=== PATIENT | female | born 1970 | race Caucasian/White ===

== ENCOUNTER → 2024-07-27 | Outpatient (CLI) | payer BC, SELFPAY ==
[2024-07-27 08:31] LABS: Basophils # (Auto) 0.1 Thou/mm3 (0.0-0.2); Basophils % (Auto) 1 % (0-2.5); Eosinophils # (Auto) 0.1 Thou/mm3 (0.0-0.5); Eosinophils % (Auto) 1 % (0-10); Hematocrit 41.8 % (36.0-46.0); Hemoglobin 13.8 g/dL (12.0-16.0); Immature Granulocytes % (Auto) 0 % (0-0); Immature Granulocytes Auto 0.02 Thou/mm3 (0.00-0.00); Lymphocytes # (Auto) 2.8 Thou/mm3 (1.0-4.8); Lymphocytes % (Auto) 33 % (10-50); Mean Corpuscular Hemoglobin 29.1 pg (25.0-35.0); Mean Corpuscular Volume 88 fL (80-100); Monocytes # (Auto) 0.8 Thou/mm3 (0.0-0.8); Monocytes % (Auto) 10 % (0-12); Neutrophils # (Auto) 4.6 Thou/mm3 (1.8-7.7); Neutrophils % (Auto) 55 % (37-80); Nucleated Red Blood Cell % 0 /100 WBC (0); Platelet Count 313 Thou/mm3 (140-440); RDW Standard Deviation 42.3 fL (36.4-46.3); Red Blood Count 4.74 Miln/mm3 (4.00-5.20); White Blood Count 8.3 Thou/mm3 (3.6-11.0)
[2024-07-27 08:40] LABS: Glucose Estimated Average 120 mg/dL (80-131); Hemoglobin A1C 5.8 % Hgb (4.8-6.0)
[2024-07-27 08:53] LABS: Alanine Aminotransferase 13 U/L (10-49); Albumin, Serum 4.4 gm/dL (3.5-5.0); Alkaline Phosphatase 67 U/L (46-116); Anion Gap 9 (7-16); Aspartate Amino Transferase 15 U/L (0-34); BUN/Creatinine Ratio 13 Ratio (12-20); Bilirubin,Total 0.8 mg/dL (0.3-1.2); Blood Urea Nitrogen 12 mg/dL (9-23); Calcium 9.8 mg/dL (8.3-10.6); Calcium (Corrected) 9.8 mg/dL (8.5-10.1); Carbon Dioxide 31.2 mMol/L (20.0-31.0); Cardiac Risk Estimate 2.9 RATIO (3.7-5.6); Chloride 102 mMol/L (98-107); Cholesterol 188 mg/dL (132-200); Creatinine (Component) 0.9 mg/dL (0.6-1.3); Globulin 2.2 gm/dL (2.3-3.5); Glucose 109 mg/dL (74-106); HDL Cholesterol 64 mg/dL (40-60); LDL Cholesterol,Calculated 76 mg/dL (0-130); Osmolality,Calculated 283 (275-295); Potassium 3.9 mMol/L (3.4-5.1); Sodium 142 mMol/L (136-145); Thyroid Stimulating Hormone 1.81 uIU/mL (0.55-4.78); Total Protein 6.6 gm/dL (5.7-8.2); Triglycerides 241 mg/dL (30-150); eGFR > 60 See Note
== END | disposition home or self-care (01) ==
LOC: COPL 07:25
PROVIDERS: PCP Internal Medicine; Referring Provider Internal Medicine; Visit Provider Internal Medicine
DX: I10 Essential (primary) hypertension (principal); E78.2 Mixed hyperlipidemia
CPT/HCPCS: 36415; 80053; 80061; 83036; 84443; 85025

== ENCOUNTER 2024-08-19 22:18 | Emergency (ER) | payer BC, SELFPAY ==
[2024-08-19 22:20] VITALS: BMI 32.1
[2024-08-19 22:34] VITALS: BP 123/85; PULSE 117; RESP 18; TEMP 36.6; O2SAT 98
--- NOTE | 2024-08-19 22:58 | EDNOTE_ITS ---
ED Animal Bite RME/HPI General Chief Complaint: Animal Bite Stated Complaint: DOG BITE TO RIGHT ARM Time Seen by Provider: 08/19/24 22:43 Arrival date/time: 08/19/24 22:18 RME / HPI RME / HPI narrative: Dr. Johnson?s Main ED Evaluation: 54yo female with no significant past medical history presents to the ED for an animal bite. Patient states her dog was attacking her outside, so she attempted to stop the dog from hurting him and sustained dog bites to her right arm. She currently rates her pain a 7-8 out of 10 in severity. Patient denies any other injuries. Patient does not remember when her last tetanus shot is. Patient states the dog did get his shots when he was a puppy. Related Data Previous Rx's ?Medication ?Instructions ?Recorded Phenazopyridine * (PYRIDIUM *) 200 mg PO TIDPC #12 tab s 10/30/16 amoxicillin 875 mg-potassium 1 tab PO BID 2 weeks #28 tabs 08/20/24 clavulanate 125 mg tablet hydrocodone 5 mg-acetaminophen 325 1 tab PO Q6H PRN pa in #14 tabs 08/20/24 mg tablet ibuprofen 800 mg tablet 800 mg PO Q8H PRN pain #30 t abs 08/20/24 Allergies Allergy/AdvReac Type Severity Reaction Status Date / Time ERYTHROMYCIN Allergy Unknown Uncoded 08/19/24 22:19 NKA Allergy Unknown Uncoded 08/19/24 22:19 ERYTHROMYCIN (Generic Allergy Y Uncoded 08/19/24 22:19 Allergy) Review of Systems Review of Systems Systems Reviewed: All systems reviewed, normal except as documented Past Medical History Past Medical History CARDIAC: Negative Congestive Heart Failure RESPIRATORY: Negative Chronic Obstructive Pulmonary Disease (COPD) GENITOURINARY: Negative Renal Disease ENDOCRINE: Negative Diabetes Mellitus Type 1 or Diabetes Mellitus Type 2 Social History SMOKING STATUS: Never smoker ED Exam Narrative Physical exam: GENERAL APPEARANCE: alert and oriented x 4, well-developed, well-nourished, no acute distress VITALS: All vitals were reviewed and the pulse ox is 98% on room air, which is normal according to my interpretation. HEENT: Normocephalic, atraumatic; pupils equal, round, reactive to light; EOMI; mucous membranes pink, moist; oropharynx clear NECK: Supple LUNGS: CTABL; no wheezes, no rales, no rhonchi HEART: Regular rate, regular rhythm; normal S1, S2; no murmurs ABDOMEN: non distended; normal BS; soft, no tenderness, no guarding, no rebound; no masses, no organomegaly, no hernia BACK: no CVA tenderness EXTREMITIES: right medial forearm has a 15 cm contused tissue area with ecchymosis and superficial abrasions with 2 large lacerations (one being 6x5cm and the other being 5x4cm in between the superficial abrasions), no active bleeding; normal member of technical staff, normal sensations, normal motor function; no edema NEUROLOGIC: awake; alert and oriented x4; cranial nerves II-XII grossly intact; no focal sensory or motor deficits PSYCHIATRIC: appropriate mood and affect SKIN: warm, dry, normal color; no rashes Course Quality Measures none Orders Category Date Time Status Irrigate Wound NOW Care 08/19/24 23:00 Completed Set Up Suture Tray NOW Care 08/19/24 23:00 Completed XR forearm RT 2V Stat Exams 08/19/24 23:01 Completed Acetaminophen Tab [Tylenol Tab] Med 08/19/24 22:58 Discontinued 650 mg PO X1 ONE Amoxicillin/Pot Clav 875 [Augmentin 875] Med 08/20/24 00:06 Discontinued 1 tab PO X1 ONE HYDROcodone/APAP 10/325 [[place] 10/325] Med 08/19/24 22:58 Discontinued 1 tab PO X1 ONE Ibuprofen Tab [Motrin Tab] Med 08/19/24 22:58 Discontinued 600 mg PO X1 ONE Lidocaine 1% 20 ml [Xylocaine 1% 20 ML] Med 08/20/24 00:12 Discontinued 20 ml INFL X1 ONE Sodium Cl Irrig Soln [NS Irrig] Med 08/19/24 23:00 Discontinued 500 ml IRRIG X1 ONE TET,DIP/PERT AC (Adult)-Tdap [Boostrix Adult (Tdap) Med 08/19/24 22:58 Discontinued Vacc] 0.5 ml IMI .ONCE ONE Vital Signs Vital signs: Vital Signs Temperature 98 F 08/19/24 22:34 Pulse Rate 117 H 08/19/24 22:34 Respiratory Rate 18 08/19/24 22:34 Blood Pressure 123/85 H 08/19/24 22:34 Pulse Oximetry (%) 98 08/19/24 22:34 Oxygen Delivery Method Room Air 08/19/24 22:34 Animal Bite MDM Narrative MDM Narrative:: Scribe Attestation: 08/19/24 - Evita Pitts am scribing for and in the presence of Dr. Johnson. See Dr. Bowles's (resident physician) addendum for procedure note. Patient data External records reviewed:: [facility] previous records (Per chart review, patient has no previous ED visits or admissions to this facility.) Clinical information provided by:: patient Social determinants that could affect healthcare access:: none Patient has the following chronic illnesses:: none How is presenting disease/condition affected by chronic disease/condition?: no chronic disease Evaluation data The following diagnostics were reviewed and interpreted by me:: radiology exam(s) Lab and/or radiology exams considered but not ordered:: none Interpretation Summary: [facility] Report Signed Patient: RUFUS RENE. Record#: [id number] Birthdate: 1970 Age/Sex: 54 / F Location: [facility] [place] Attending Dr: Ordering Physician: Jakob Johnson MD Date of Service: 08/19/24 Procedure(s): XR forearm RT 2V Accession Number(s): [id number] cc: Brijesh Shaffer MD; NO PRIMARY/FAMILY,PHYSICIAN; Jakob Johnson MD~ Examination: Forearm, right, 2 views. Technique: Forearm, AP, lateral 2 views, right Date and time of exam: August 19, 2024, 11:12 PM INDICATIONS: Dog bite today FINDINGS: Soft tissue defects medial forearm No fracture. No opaque foreign body IMPRESSION: No opaque foreign body Dictated By: Brijesh Shaffer MD Signed By: <Electronically signed by Brijesh Shaffer MD in OV> 08/19/24 1249 Medications / Prescriptions Medications or Prescriptions considered but not ordered:: none Medication administrations:: Medication Administration History Discontinued Medications Acetaminophen (Acetaminophen 325 Mg Tablet) 650 mg PO X1 ONE Stop: 08/19/24 22:59 Last Admin: 08/19/24 23:56 Dose: 650 mg Documented By: ANA Hydrocodone Bitart/Acetaminophen (Hydrocodone/Apap 10/325 Tab) 1 tab PO X1 ONE Stop: 08/19/24 22:59 Last Admin: 08/19/24 23:58 Dose: 1 tab Documented By: ANA Amoxicillin/Clavulanate Potassium (Amoxicillin/Pot Clav 875 Tablet) 1 tab PO X1 ONE Stop: 08/20/24 00:07 Last Admin: 08/20/24 00:18 Dose: 1 tab Documented By: ANA Diphtheria/Tetanus/Acell Pertussis (Diphth,Pertuss(Acell),Tet Vac 0.5 Ml Syr- Adult) 0.5 ml IMi .ONCE ONE Stop: 08/19/24 22:59 Last Admin: 08/19/24 23:57 Dose: 0.5 ml Documented By: ANA Ibuprofen (Ibuprofen Tab 600 Mg Tablet) 600 mg PO X1 ONE Stop: 08/19/24 22:59 Last Admin: 08/19/24 23:57 Dose: 600 mg Documented By: ANA Lidocaine HCl (Lidocaine Hcl 1% 20 Ml Vial) 20 ml INFL X1 ONE Stop: 08/20/24 00:13 Last Admin: 08/20/24 00:19 Dose: 20 ml Documented By: ANA Sodium Chloride (Sodium Cl Irrig Soln 500 Ml Btl) 500 ml IRRIG X1 ONE Stop: 08/19/24 23:01 Last Admin: 08/20/24 00:25 Dose: 500 ml Documented By: ANA see above Consultations Consultation(s) initiated? (list below): No Diagnosis Differential diagnosis animal bite: dog bite and other (fracture, puncture wound s, cellulitis) Most likely diagnosis given after review of the tests above:: see clinical impression below Admission Indicated Admission indicated?: not indicated Explain why admission is indicated or not indicated:: Patient has no emergent abnormalities in their studies and can be managed on an outpatient basis. Admission Request Was there a request for admission?: No Disposition Plan Disposition Plan: Discharge Discharge Attestation Discharge Attestation: The patient and all family members were given an opportunity to ask questions and understood the discharge instructions. Discharge instructions specifically effects, indications for sooner follow up or return to the emergency department, and the expected course of current diagnosis. Patient condition: Stable Discharge Plan Plan Patient Disposition: HOME (Self Care) Discharge Disposition comment: Stable for discharge home Patient condition on transfer: Stable Prescriptions/Referrals Prescriptions/Med Rec: New amoxicillin-pot clavulanate 875-125 mg tablet 1 tab PO BID 14 Days Qty: 28 0RF ibuprofen 800 mg tablet 800 mg PO Q8H PRN (Reason: pain) Qty: 30 0RF hydrocodone-acetaminophen 5-325 mg tablet 1 tab PO Q6H MDD 4 tabs PRN (Reason: pain) Qty: 14 0RF No Action Phenazopyridine * (PYRIDIUM *) 200 MG tablet 200 mg PO TIDPC Qty: 12 0RF Referrals: [facility] [Provider Group] - In 1 week Problem List Clinical Impression: Dog bite Patient/Caregiver Discharge Instructions Discharge Activity: activity as tolerated Education Materials: Animal Bites and Scratches, ED Dog Bite Additional Instructions: Please return to the emergency department if you have any worsening or any further medical problems and we will help you. Otherwise you should follow-up with your primary care doctor within the next several days. Be sure to take all of your antibiotic until they are completely gone even if you feel better before that. Your antibiotic is called amoxicillin clavulanate Print Language: German Stand Alone Forms: [facility] Info., Patient Portal Info Letter
--- NOTE | 2024-08-19 23:01 | XR_ITS ---
Examination: Forearm, right, 2 views. Technique: Forearm, AP, lateral 2 views, right Date and time of exam: August 19, 2024, 11:12 PM INDICATIONS: Dog bite today FINDINGS: Soft tissue defects medial forearm No fracture. No opaque foreign body IMPRESSION: No opaque foreign body
[2024-08-19] MEDS: ACETAMINOPHEN 325 MG TABLET 650 MG PO (23:56)
[2024-08-19] MEDS: DIPHTH,PERTUSS(ACELL),TET VAC 0.5 ML SYR- ADULT IMi (23:57)
[2024-08-19] MEDS: IBUPROFEN TAB 600 MG TABLET PO (23:57)
[2024-08-19] MEDS: HYDROcodone/APAP 10/325 TAB PO (23:58)
--- NOTE | 2024-08-20 00:15 | PD.EDADDENDU ---
Emergency Room Addendum Addendum Narrative: Procedure note -Under aseptic measures, Skin was prepared and drapped. we placed Ethilon sutures spaced up after getting lidocaine around the tissue to numb the area and let pus come out. Patricio Bowles MD PGY-2
[2024-08-20] MEDS: AMOXICILLIN/POT CLAV 875 TABLET 1 TAB PO (00:18)
[2024-08-20] MEDS: LIDOCAINE HCL 1% 20 ML VIAL INFL (00:19)
[2024-08-20] MEDS: SODIUM CL IRRIG SOLN 500 ML BTL IRRIG (00:25)
[2024-08-20 00:52] VITALS: BP 130/76; PULSE 100; RESP 18; TEMP 37; O2SAT 98
== END 2024-08-20 01:07 | disposition home or self-care (01) ==
PROVIDERS: Emergency Provider Emergency Medicine
DX: S41.151A Open bite of right upper arm, initial encounter (principal); W54.0XXA Bitten by dog, initial encounter; Z23 Encounter for immunization
CPT/HCPCS: 12004; 73090; 90471; 90715; 99283; A4217; J3490; A9270